=== PATIENT | male | born 1995 | race Two or more races ===

== ENCOUNTER 2023-03-05 21:12 | Emergency (ER) | payer OTHER ==
[2023-03-05] MEDS ORDERED: ACETAMINOPHEN 1000 MG/100 ML BAG IVPB ONE (21:27)
[2023-03-05] MEDS ORDERED: SODIUM CHLORIDE 1,000 ML IV STA (21:27)
[2023-03-05 22:00] LABS: HEMATOCRIT 46.1 % (35.4-49); HEMOGLOBIN 15.4 G/dL (11.7-16.9); MCH 29.6 pg (25.7-33.7); MCHC 33.4 g/dl (32.0-35.9); MEAN CELL VOLUME 88.7 fl (80-96); MEAN PLT VOLUME 8.5 fl (7.5-11.1); RDW 14.3 % (11.9-15.9); WHITE BLOOD COUNT 7.4 10^3/uL (4.0-10.8)
[2023-03-05 22:11] LABS: ALBUMIN 4.3 g/dl (3.4-5.0); BILIRUBIN,TOTAL 1.6 mg/dl (0.2-1); CALCIUM 9.6 mg/dl (8.5-10); CREATININE 1.3 mg/dl (0.55-1.3); TOT PROT 7.8 g/dl (6.4-8.2)
[2023-03-05 22:11] LABS: PLATELET ESTIMATE ADEQUATE
[2023-03-05 22:45] VITALS: BP 148/77; PULSE 110; RESP 18; TEMP 100.1; BMI 29.5
[2023-03-06] MEDS ORDERED: AMOX TR/POT CLAV 875MG/125MG TABLETS (FP) PO ONE (00:34)
[2023-03-06] MEDS ORDERED: AMOX TR/POT CLAV 875MG/125MG TABLETS (FP) ONE (00:37)
== END 2023-03-06 00:56 | disposition home or self-care (01) ==
LOC: FER 21:12
PROC: 3E033NZ Introduction of Analgesics, Hypnotics, Sedatives into Peripheral Vein, Percutaneous Approach (ICD-10-PCS; principal; 2023-03-05)
DX: R10.11 Right upper quadrant pain (principal); R50.9 Fever, unspecified; R09.81 Nasal congestion; K57.32 Diverticulitis of large intestine without perforation or abscess without bleeding; Z20.822 Contact with and (suspected) exposure to COVID-19
CPT/HCPCS: 36415; 74177-TC; 80053; 85027; 99285-25; C9803-CS; Q9967; U0003; U0005